=== PATIENT | female | born 1970 | race Caucasian/White ===

== ENCOUNTER 2021-06-15 06:52 | Day surgery (SDC) | payer BC, OTHER ==
[~2021-06-15 06:52] MED LIST: Lactated Ringers 1,000 ML IV SCH; cefOXitin 2 GM in Premix Bag 1 BAG IV ONE
[2021-06-15] MEDS ORDERED: Scopolamine 1.5 MG Transdermal Patch ONE (07:24)
[2021-06-15] MEDS ORDERED: fentaNYL 100 MCG/2 ML SDV IVPUSH PRN (07:35)
[2021-06-15] MEDS ORDERED: Ondansetron 4 MG/2 ML SDV IVPUSH PRN (07:35)
[2021-06-15] MEDS ORDERED: Naloxone 0.4 MG/ML SDV IVPUSH PRN (07:35)
[2021-06-15] MEDS ORDERED: Albuterol 0.083% 2.5 MG/3 ML Neb Soln NEB PRN (07:35)
[2021-06-15] MEDS ORDERED: Morphine 2 MG/ML SYRINGE IVPUSH PRN (07:35)
[2021-06-15] MEDS ORDERED: Metoclopramide 10 MG/2 ML SDV IVPUSH PRN (07:35)
[2021-06-15] MEDS ORDERED: HYDROmorphone 1 MG/ML Syringe IVPUSH PRN (07:35)
--- NOTE | 2021-06-15 07:38 | PCM.PREANE ---
Preanesthetic Assessment - Anesthesia/Transfusion/Family Hx Anesthesia History: Prior Anesthesia Reaction Family History of Anesthesia Reaction: No Transfusion History: No Prior Transfusion(s) Intubation History: Unknown - Review of Systems General: No Symptoms Pulmonary: No Symptoms Cardiovascular: No Symptoms Gastrointestinal: Abdominal Pain, Nausea Neurological: No Symptoms Other: Reports: None - Physical Assessment NPO Status Date: 06/15/21 NPO Status Time: 00:00 Height: 5 ft 3 in Weight: 213 lb ASA Class: 3 Mental Status: Alert & Oriented x3 Airway Class: Mallampati = 2 Dentition: Reports: Normal Dentition ROM/Head Extension: Full Lungs: Clear to Auscultation, Normal Respiratory Effort Cardiovascular: Regular Rate, Regular Rhythm - Lab Values: Laboratory Last Values SARS-CoV-2 RNA (ESME) NEGATIVE (NEGATIVE) 06/15/21 06:32 - Allergies Allergies/Adverse Reactions: Allergies Allergy/AdvReac Type Severity Reaction Status Date / Time No Known Allergies Allergy Verified 06/11/21 09:44 - Blood Blood Available: No - Acknowledgements Anesthesia Type Planned: General Anesthesia Pt an Appropriate Candidate for the Planned Anesthesia: Yes Alternatives and Risks of Anesthesia Discussed w Pt/Guardian: Yes Pt/Guardian Understands and Agrees with Anesthesia Plan: Yes PreAnesthesia Questionnaire HEENT History: Reports: Other (See Below) Other HEENT History: wears glasses Cardiovascular History: Reports: Hypertension Respiratory History: Reports: None Gastrointestinal History: Reports: Cholelithiasis Genitourinary History: Reports: Renal Calculus Other Genitourinary History: hx of passing kidney stones [employer] OFFICER History: Reports: None Musculoskeletal History: Reports: Arthritis, Back Pain, Chronic Neurological History: Reports: Vertigo Psychiatric History: Reports: Anxiety, Depression Endocrine/Metabolic History: Reports: Obesity/BMI 30+ Hematologic History: Reports: None Immunologic History: Reports: None Oncologic (Cancer) History: Reports: None Dermatologic History: Reports: None - Past Surgical History Head Surgeries/Procedures: Reports: None HEENT Surgical History: Reports: Adenoidectomy, Tonsillectomy Cardiovascular Surgical History: Reports: None Respiratory Surgical History: Reports: None GI Surgical History: Reports: Bariatric Procedure Female Surgical History: Reports: Hysterectomy Endocrine Surgical History: Reports: None Neurological Surgical History: Reports: None Musculoskeletal Surgical History: Reports: None - SUBSTANCE USE Recreational Drug Use History: No - HOME MEDS Home Medications: Home Meds Amitriptyline [Elavil] 25 mg PO DAILY 06/11/21 [History] Cholecalciferol (Vitamin D3) [Vitamin D3] 5,000 unit PO DAILY 06/11/21 [History] Diclofenac Sodium [Voltaren 1% Gel] 1 dose TOP DAILY PRN 06/11/21 [History] Estrogens, Conjugated [Premarin] 0.3 mg PO DAILY 06/11/21 [History] Hydrocodone/Acetaminophen [HYDROcodone-Acetaminophen 5-325 MG] 1 tab PO ASDIRECTED PRN 06/11/21 [History] PARoxetine HCL [Paroxetine HCl] 40 mg PO DAILY 06/11/21 [History] hydroCHLOROthiazide [Hydrochlorothiazide] 25 mg PO DAILY 06/11/21 [History] lisinopriL [Lisinopril] 40 mg PO QAM 06/11/21 [History] valACYclovir HCl [valACYclovir] 2,000 mg PO Q12H PRN 06/11/21 [History] - CURRENT (IN HOUSE) MEDS Current Meds: Current Medications Lactated Ringer's (Ringers, Lactated) 1,000 mls @ 125 mls/hr IV ASDIRECTED KAREEM Discontinued Medications Cefoxitin Sodium 2 gm/ Premix 50 mls @ 100 mls/hr IV ONETIME ONE Stop: 06/15/21 06:59 Scopolamine (Scopolamine 1.5 Mg Transdermal Patch) Confirm Administered Dose 1.5 mg .ROUTE .STK-MED ONE Stop: 06/15/21 07:25
[2021-06-15] MEDS ORDERED: Bupivacaine 0.5% 30 ML SDV ONE (07:44)
[2021-06-15] MEDS ORDERED: Dexamethasone 4 MG/ML 5 ML MDV ONE (07:47)
[2021-06-15] MEDS ORDERED: Lidocaine 2% 5 ML SDV ONE (07:47)
[2021-06-15] MEDS ORDERED: Sugammadex Sodium 200 MG/2 ML VIAL ONE (07:47)
[2021-06-15] MEDS ORDERED: Ondansetron 4 MG/2 ML SDV ONE (07:47)
[2021-06-15] MEDS ORDERED: Propofol 200 MG/20 ML SDV ONE ×2 (07:47→10:26)
[2021-06-15] MEDS ORDERED: Rocuronium Bromide 50 MG/5 ML Syringe ONE ×2 (07:47→09:12)
[2021-06-15] MEDS ORDERED: Midazolam 1 MG/ML 2 ML SDV ONE (07:48)
[2021-06-15] MEDS ORDERED: fentaNYL 100 MCG/2 ML SDV ONE (07:48)
[2021-06-15] MEDS ORDERED: cefOXitin 100 ML ONE (08:16)
[2021-06-15] MEDS ORDERED: propofoL 100 ML ONE (08:16)
[2021-06-15] MEDS ORDERED: ePHEDrine 50 MG/ML SDV ONE (09:09)
[2021-06-15] MEDS ORDERED: Sodium Chloride 0.9% 20 ML ONE (09:09)
[2021-06-15] MEDS ORDERED: Ketorolac 30 MG/ML SDV ONE (09:30)
--- NOTE | 2021-06-15 10:55 | PCM.OPNOTE ---
- General Post-Op/Procedure Note Date of Surgery/Procedure: 06/15/21 Operative Procedure(s): Laparoscopic cholecystectomy Pre Op Diagnosis: Symptomatic cholelithiasis Post-Op Diagnosis: Acute & chronic cholecystitis w/ cholelithiasis. Anesthesia Technique: General ET Tube (ASA III) Primary Surgeon: Polo Osman [employer] Rep[employer]: Lalo Knott Fluid Replacement, Intraop: 1,700 Output, Urine Amount: 150 EBL in mLs: 50 Condition: Good Free Text/Narrative:: DICTATION 148245 CPT CODE 30229
--- NOTE | 2021-06-15 11:02 | PCM48HPAN ---
Post Anesthesia Note - EVALUATION WITHIN 48HRS OF ANESTHETIC Vital Signs in Normal Range: Yes Patient Participated in Evaluation: Yes Respiratory Function Stable: Yes Airway Patent: Yes Cardiovascular Function Stable: Yes Hydration Status Stable: Yes Pain Control Satisfactory: Yes Nausea and Vomiting Control Satisfactory: Yes Mental Status Recovered: Yes Vital Signs: Last Vital Signs Temp 98.4 F 06/15/21 10:53 Pulse 87 06/15/21 10:58 Resp 22 H 06/15/21 10:58 BP 105/63 06/15/21 10:58 Pulse Ox 94 L 06/15/21 10:58
--- NOTE | 2021-06-15 11:02 | PCM.POSTAN ---
POST ANESTHESIA ASSESSMENT - MENTAL STATUS Mental Status: Alert, Oriented - VITAL SIGNS Vital Signs: Last Vital Signs Temp 98.4 F 06/15/21 10:53 Pulse 87 06/15/21 10:58 Resp 22 H 06/15/21 10:58 BP 105/63 06/15/21 10:58 Pulse Ox 94 L 06/15/21 10:58 - RESPIRATORY Respiratory Status: Respiratory Rate WNL, Airway Patent, O2 Saturation Stable - CARDIOVASCULAR CV Status: Pulse Rate WNL, Blood Pressure Stable - GASTROINTESTINAL GI Status: No Symptoms - POST OP HYDRATION Hydration Status: Adequate & Stable
--- NOTE | 2021-06-15 13:06 | OR ---
SURGEON: Polo Osman M.D. DATE OF PROCEDURE: 06/15/2021 OPERATION PERFORMED: Laparoscopic cholecystectomy. PRIMARY SURGEON: Polo Osman M.D. PRESCHOOL LEAD TEACHER: Club Room Attendant: JOSE Torres student. ANESTHESIA: General endotracheal. ASA CLASSIFICATION: III. PREOPERATIVE DIAGNOSES: Cholelithiasis with cholecystitis. POSTOPERATIVE DIAGNOSIS: Acute on chronic cholecystitis with cholelithiasis. ESTIMATED BLOOD LOSS: 50 mL. INTRAOPERATIVE FLUID REPLACEMENT: 1700 mL. INTRAOPERATIVE URINARY OUTPUT: 150 mL. DESCRIPTION OF PROCEDURE: The patient was taken to the operating room, placed on the operating table in the supine position. Time-out was called for appropriate identification of the patient and procedure. Thigh-high TEDs and sequential compression boots were placed. Following satisfactory attainment of general endotracheal anesthesia, a Beckham catheter was placed in the patient's urinary bladder. The abdomen was then prepped with DuraPrep solution. Sterile drapes were applied. The skin just below the umbilicus was infiltrated with 0.5% Marcaine solution. Skin incision was made and deepened through the subcutaneous tissue obtaining hemostasis with the use of electrocautery. The Veress needle was introduced into the peritoneal cavity. Saline drop test was positive. Carbon dioxide pneumoperitoneum was established with the release set at 13 cm of water. Once pneumoperitoneum had been established, 5 mm camera and port were placed through the infraumbilical incision. Appropriate positions for the upper quadrant incisions had been identified prior to insufflating. The subxiphoid port was approached. The skin was infiltrated with 0.5% Marcaine solution. Skin incision was made and deepened through the subcutaneous tissue obtaining hemostasis with the use of electrocautery. 12 mm port was placed through that incision. Again, under camera vision, 5 mm midclavicular and 5 mm anterior axillary ports were placed. Each incision had preemptively been infiltrated with 0.5% Marcaine solution. The gallbladder was grasped, and there were 2 large stones present. We were able to maneuver the gallbladder. At that point with concern for a short cystic duct, the patient was given indocyanine green. This dissection continued. We were able to identify the cystic duct and cystic artery especially with the aid of the indocyanine green. Once that was accomplished, the cystic duct was doubly hemoclipped and transected with the laparoscopic Metzenbaum scissors. The cystic artery was handled in a similar fashion. Once that was accomplished, we were able to partially dissect the gallbladder away. However, the gallbladder was quite distended, and ultimately, I had to decompress the gallbladder. Once that was accomplished, it was easier to maneuver the gallbladder and separate it from the liver, although we did get into the liver on a couple of occasions. There was no significant bleeding and no obvious bile leak was noted. Once the gallbladder had been amputated, this was placed in an Endo Catch bag. That was maintained in situ while the right upper quadrant was irrigated. There was no bile leak noted and no bleeding coming from the liver bed. Nevertheless, Surgicel was placed into the bed of the gallbladder. The right upper quadrant was irrigated with a liter of sterile saline solution. Following that, the right hemidiaphragm was irrigated with 250 mL of saline containing 20 mL of 0.5% Marcaine solution. That fluid was left in place. The Endo Catch bag containing the gallbladder was removed through the subxiphoid port, although the incision had to be lengthened somewhat to remove this as the stones were quite large. Under camera vision, the 5 mm midclavicular and anterior axillary ports were removed, and finally, the infraumbilical camera and port were removed. Wounds were inspected for hemostasis, and bleeding sites were electrocoagulated. The subxiphoid fascia was reapproximated with 0 Vicryl suture. The subxiphoid and infraumbilical incisions were closed in 2 layers approximating the subcutaneous tissue with 3-0 Vicryl and the skin with subcuticular 4-0 Monocryl. The anterior axillary and midclavicular incisions were closed with subcuticular 4-0 Monocryl. All incisions were Steri-Stripped and dressed with sterile Tegaderm pads. Sponge, needle, and instrument counts were all correct. Beckham catheter was removed prior to emergence from anesthesia. Following emergence from anesthesia and extubation, the patient was taken to recovery room in stable condition. DAVION MARSHALL /[id number]
[2021-06-15] MEDS ORDERED: Acetaminophen/HYDROcodone 325-5 MG Tab PO ONE (14:07)
== END 2021-06-15 14:30 | disposition home or self-care (01) ==
LOC: MW.SDS 06:52
PROVIDERS: ATTEND Surgery
DX: K80.12 Calculus of gallbladder with acute and chronic cholecystitis without obstruction (principal); I10 Essential (primary) hypertension; E66.9 Obesity, unspecified; Z98.890 Other specified postprocedural states; Z98.84 Bariatric surgery status; Z79.899 Other long term (current) drug therapy; Z68.37 Body mass index [BMI] 37.0-37.9, adult; Z01.812 Encounter for preprocedural laboratory examination; Z20.822 Contact with and (suspected) exposure to COVID-19
CPT/HCPCS: 47562; 87635; 88304; A9270; J0131; J0694; J1100; J1170; J1885; J2250; J2370; J2405; J2704; J3010; J3490; J7030; J7120; 00790; U0002